=== PATIENT | female | born 1980 ===

== ENCOUNTER 2018-03-14 10:59 | Inpatient (IN) | payer OTHER ==
[~2018-03-14] VITALS: Ht 175.3 cm; Wt 73.5 kg
[~2018-03-14 10:59] MED LIST: TRINESSA LO TA1 EACH PO
== END 2018-03-19 10:42 | disposition home or self-care (01) | DRG 621 ==
LOC: O/R 03-18 06:10 → SURH 03-18 07:00
PROVIDERS: Plastic Surgery
PROC: 0JB80ZZ Excision of Abdomen Subcutaneous Tissue and Fascia, Open Approach (ICD-10-PCS; 2018-03-18)
PROC: 0HBV0ZZ Excision of Bilateral Breast, Open Approach (ICD-10-PCS; principal; 2018-03-18 07:00)
DX: E65 Localized adiposity (principal); N62 Hypertrophy of breast; E66.01 Morbid (severe) obesity due to excess calories; M62.08 Separation of muscle (nontraumatic), other site; Z98.84 Bariatric surgery status